=== PATIENT | female | born 1980 | race Caucasian/White ===

== ENCOUNTER 2016-07-18 16:20 | Inpatient (IN) | payer OTHER ==
[2016-07-18 16:29] VITALS: BMI 29.0
--- NOTE | 2016-07-18 16:44 | PDOC ---
History of Present Illness - General Chief Complaint: Palpitations Stated Complaint: NOT FEELING WELL Time Seen by Provider: 07/18/16 16:36 - History of Present Illness Initial Comments: 07/18/16 17:08 36 year old female presented to the ED with chief complaints of "feeling funny sensation over her chest" x 1 day. A/c to the patient, she was driving at around 12:30pm today, suddenly felt very hot, started to have funny sensation over her chest. At the same time, she felt dizzy, had near syncope, sweating, saw colored halos. She pulled the car, took some ice tea and gum, felt a little better. Patient went home, had something to eat since she only had one cup of coffee this morning but the funny sensation still persisted, hence came to the ED for further evaluation. Denies loc, vertigo, numbness, tingling sensation, chest pain, sob, cough, abdominal pain, nausea or vomiting. Bowel/Bladder habit normal. Sleep/Appetite Normal. LMP:Jul 03, 2016 Tubal ligation done last year Past Medical Hx: Thyroid disease (Radiation done 4yrs ago, not on meds) Allergies: NKDA Medications: None Past Surgical Hx: None Hospitalization: Never been hospitalized Social: Current smoker, 5-10 cigs/day since 20 yrs Occasional alcohol intake No use of illicit drug use. PCP: Dr. Sabrina Bailey. Past History - Past Medical History Allergies/Adverse Reactions: Allergies Allergy/AdvReac Type Severity Reaction Status Date / Time No Known Allergies Allergy Verified 07/18/16 16:23 Home Medications: Ambulatory Orders NK [No Known Home Medication] 07/18/16 Asthma: No Cancer: No Cardiac Disorders: No Diabetes: No HTN: No Seizures: No Thyroid Disease: Yes (hyperactive) - Surgical History Abdominal Surgery: Yes (tubal ligation) - Reproductive History Para: 4 Cervical CA: No Dysfunctional Uterine Bleeding: No Ectopic : No Endometrial CA: No Polycystic Ovaries: No - Psycho/Social/Smoking Cessation Hx Anxiety: No Suicidal Ideation: No Smoking Status: Yes Smoking History: Current every day smoker Have you smoked in the past 12 months: Yes Number of Cigarettes Smoked Daily: 10 If you are a former smoker, when did you quit?: 12/13/11 Information on smoking cessation initiated: No Hx Alcohol Use: No Drug/Substance Use Hx: No Substance Use Type: None Hx Substance Use Treatment: No Review of Systems - Review of Systems Able to Perform ROS?: Yes Comments:: 07/18/16 17:22 CONSTITUTIONAL: Absent: fever, chills, diaphoresis, generalized weakness, malaise, loss of appetite HEENT: Absent: rhinorrhea, nasal congestion, throat pain, throat swelling, difficulty swallowing, mouth swelling, ear pain, eye pain, visual Changes CARDIOVASCULAR: Present: Palpitations Absent: chest pain, syncope, palpitations, irregular heart rate, lightheadedness , peripheral edema RESPIRATORY: Absent: cough, shortness of breath, dyspnea with exertion, orthopnea, wheezing, stridor, hemoptysis GASTROINTESTINAL: Absent: abdominal pain, abdominal distension, nausea, vomiting, diarrhea, constipation, melena, hematochezia GENITOURINARY: Absent: dysuria, frequency, urgency, hesitancy, hematuria, flank pain, genital pain MUSCULOSKELETAL: Absent: myalgia, arthralgia, joint swelling SKIN:~ Absent: rash, itching, pallor HEMATOLOGIC/IMMUNOLOGIC: Absent: easy bleeding, easy bruising, lymphadenopathy, frequent infections ENDOCRINE: Absent: unexplained weight gain, unexplained weight loss, heat intolerance, cold intolerance NEUROLOGIC: Absent: headache, focal weakness or paresthesias, dizziness, unsteady gait, seizure, mental status changes, bladder or bowel incontinence PSYCHIATRIC: Absent: anxiety, depression, suicidal or homicidal ideation, hallucinations. Is the patient limited Sami proficient: No *Physical Exam - Vital Signs Last Vital Signs Temp Pulse Resp BP Pulse Ox 97.8 F 66 18 113/83 100 07/18/16 19:00 07/18/16 19:00 07/18/16 19:00 07/18/16 19:00 07/18/16 19:00 - Physical Exam Comments: 07/18/16 17:24 PE: GENERAL: Awake, alert, and fully oriented, in no acute distress HEAD: No signs of trauma EYES: PERRLA, EOMI, sclera anicteric, conjunctiva clear ENT: Auricles normal inspection, hearing grossly normal, nares patent, oropharynx clear without exudates. Moist mucosa NECK: Normal ROM, supple, no lymphadenopathy, JVD, or masses LUNGS: Breath sounds equal, clear to auscultation bilaterally. No wheezes, and no crackles.. HEART: Tachycardic, Regular rate and rhythm, normal S1 and S2, no murmurs. ABDOMEN: Soft, nontender, normoactive bowel sounds. No guarding, no rebound. No masses EXTREMITIES: Normal range of motion, no edema. No clubbing or cyanosis. No cords, erythema, or tenderness NEUROLOGICAL: Cranial nerves II through XII grossly intact. Normal speech, Gait not observed SKIN: Tattoos, Warm, Dry, normal turgor, no rashes or lesions noted. ED Treatment Course - LABORATORY CBC & Chemistry Diagram: 07/18/16 17:15 07/18/16 17:15 - ADDITIONAL ORDERS Additional order review: Laboratory Results 07/18/16 07/18/16 07/18/16 18:15 17:30 17:15 INR Sodium Potassium Chloride Carbon Dioxide Anion Gap BUN Creatinine Creat Clearance w eGFR Random Glucose Calcium Magnesium Total Bilirubin AST ALT Alkaline Phosphatase Creatine Kinase Troponin I Total Protein Albumin TSH 95.20 H Serum , Qual Negative Urine Color Urine Appearance Urine pH Ur Specific [place] Urine Protein Urine Glucose (UA) Urine Ketones Urine Blood Urine Nitrite Urine Bilirubin Urine Urobilinogen Ur Leukocyte Esterase Urine HCG, Qual Negative 07/18/16 07/18/16 07/18/16 17:15 17:15 17:15 INR 1.04 Sodium 138 Potassium 4.0 Chloride 100 Carbon Dioxide 29 D Anion Gap 9 BUN 16 D Creatinine 1.0 D Creat Clearance w eGFR > 60 Random Glucose 80 Calcium 8.8 Magnesium 2.2 Total Bilirubin 0.3 D AST 17 ALT 34 D Alkaline Phosphatase 51 D Creatine Kinase 245 H D Troponin I < 0.02 Total Protein 6.7 Albumin 3.8 D TSH Serum , Qual Urine Color Yellow Urine Appearance Slcloudy Urine pH 6.0 Ur Specific [place] 1.026 Urine Protein Negative Urine Glucose (UA) Negative Urine Ketones Trace H Urine Blood Negative Urine Nitrite Negative Urine Bilirubin Negative Urine Urobilinogen 4.0 e.u/dl H Ur Leukocyte Esterase Negative Urine HCG, Qual 07/18/16 17:15 RBC 3.60 MCV 86.1 MCHC 32.7 RDW 15.7 H D MPV 8.6 D Neutrophils % 62.2 Lymphocytes % 31.6 D Monocytes % 4.2 Eosinophils % 1.2 D Basophils % 0.8 - RADIOLOGY Radiology Studies Ordered: Category Date Time Status CHEST PA & LAT [RAD] Stat Radiology 07/18/16 18:18 Completed Medical Decision Making - Medical Decision Making 07/18/16 17:27 36 year old female with significant past medical h/o of thyroid disease ( underwent radiation 4 yrs ago) presented to the ED with chief complaints of "feeling funny sensation over her chest" x 1 day. # Palpitations R/o Pulmonary embolism-ordered D-dimer R/o ACS-ordered cardiac troponins R/o metabolic causes EKG showed abnormal T wave changes in the anterior and lateral leads. IV NS @ 100mls/hr. 07/18/16 19:09 Patient still has palpitation. Hemodynamically stable. Patient sitting comfortably in bed. Two sets of troponins ordered, reports pending. If both sets of troponins are negative, likely to be discharged. Illness, Investigation and Plan of care explained to the patient. She verbalized understanding. Case discussed with Dr. Diaz. *DC/Admit/Observation/Transfer Diagnosis at time of Disposition: Palpitations
[2016-07-18] MEDS ORDERED: SODIUM CHLORIDE 1,000 ML IV SCH (17:15)
[2016-07-18 17:43] LABS: BASOPHIL 0.8 % (0-2.0); EOSINOPHIL 1.2 % (0-4.5); MCH 28.2 pg (25.7-33.7); MCHC 32.7 g/dl (32.0-36.0); MEAN CELL VOLUME 86.1 fl (80-96); MEAN PLT VOLUME 8.6 fl (7.5-11.1); NEUTROPHILS 62.2 % (42.8-82.8); PLATELET COUNT 223 K/MM3 (134-434); RDW 15.7 % (11.6-15.6); WHITE BLOOD COUNT 6.7 K/mm3 (4.0-10.0)
--- NOTE | 2016-07-18 17:45 | PDOC ---
Attending Attestation - Resident Resident Name: Janelle Hernandez - ED Attending Attestation I have performed the following: I have examined & evaluated the patient, The case was reviewed & discussed with the resident, I agree w/resident's findings & plan, Exceptions are as noted - HPI HPI: 07/18/16 17:40 36-year-old female with past medical history of thyroid disorder, not currently on medications presents with near syncope. Patient woke up in her usual state health feeling well. While she was driving in the car at approximately 12:30 PM , the patient felt warm and hot and flushed. She felt lightheaded and dizzy. She pulled over her car, open upper window, and drank some iced tea and felt better. She had returned home and noted of vague chest "funny" sensation. She denies chest pain or pressures. Denies palpitations. She is unable to further characterize the symptoms. No associated short of breath or diaphoresis. Came into the ER because she felt continually lightheaded. - Physicial Exam PE: 07/18/16 17:43 GENERAL: Awake, alert, and fully oriented, in no acute distress. HEAD: No signs of trauma EYES: PERRLA, EOMI, sclera anicteric, conjunctiva clear ENT: Auricles normal inspection, hearing grossly normal, nares patent, oropharynx clear without exudates. NECK: Normal ROM, supple, no lymphadenopathy, JVD, or masses LUNGS: Breath sounds equal, clear to auscultation bilaterally. No wheezes, and no crackles HEART: Regular rate and rhythm, normal S1 and S2, no murmurs, rubs or gallops ABDOMEN: Soft, nontender, normoactive bowel sounds. No guarding, no rebound. No masses EXTREMITIES: Normal range of motion, no edema. No clubbing or cyanosis. No cords, erythema, or tenderness NEUROLOGICAL: Cranial nerves II through XII grossly intact. Normal speech, normal gait SKIN: Warm, Dry, normal turgor, no rashes or lesions noted. - Medical Decision Making 07/18/16 17:45 ECG: NSR 73, T wave flat III, TWI II, aVF, TW flat I, avL, V5, TWI V6, no std/ tameka, QTC 447 msec, no brugada, no HOCM, no WPW. 07/18/16 17:46 The history sounds suspicious for vasovagal near-syncope. The patient reports that she did not eat anything during the daytime in the morning and was quite busy. I will give her IV fluids. However, the patient's EKG demonstrates new T- wave findings compared to EKG in 2013. I have low suspicion for acute coronary syndrome. We'll obtain two troponins and place patient on cardiac telemetry. We' ll also obtain a d-dimer. If workup is negative patient reports feeling after IV fluids, we'll discharge patient with primary care physician follow-up.
[2016-07-18 17:54] LABS: INR 1.04 (0.82-1.09); PROTHROMBIN TIME (PATIENT) 11.5 SEC (9.98-11.88)
[2016-07-18 18:05] LABS: ALBUMIN 3.8 g/dl (3.4-5.0); ANION GAP 9 (8-16); BILIRUBIN,TOTAL 0.3 mg/dL (0.2-1.0); CALCIUM 8.8 mg/dL (8.5-10.1); CO2 29 mmol/L (21-32); GLUCOSE,RANDOM 80 mg/dL (74-106); MAGNESIUM 2.2 mg/dL (1.8-2.4); SGOT/AST 17 U/L (15-37); SGPT/ALT 34 U/L (12-78); TOT PROT 6.7 g/dl (6.4-8.2)
[2016-07-18 18:08] LABS: ALK PHOS 51 U/L (45-117); TROPONIN I < 0.02 ng/ml (0.00-0.05)
[2016-07-18 18:25] LABS: URINE APPEARANCE SLCLOUDY; URINE BILIRUBIN NEGATIVE (NEGATIVE); URINE BLOOD NEGATIVE (NEGATIVE); URINE COLOR YELLOW; URINE GLUCOSE (UA) NEGATIVE (NEGATIVE); URINE KETONE TRACE (NEGATIVE); URINE LEUK ESTERASE NEGATIVE (NEGATIVE); URINE NITRITE NEGATIVE (NEGATIVE); URINE PROTEIN NEGATIVE (NEGATIVE); URINE UROBILINOGEN 4.0 E.U/dl E.U./dl (0.2-1.0)
[2016-07-18 21:23] LABS: TROPONIN I < 0.02 ng/ml (0.00-0.05)
--- NOTE | 2016-07-18 21:41 | PDOC ---
*Heart Score (ED) - History History: Slightly suspicious - Electrocardiogram EKG: Non specific repolarization disturbance - Age Age: </= 45 - Risk Factors Based on the list above the patient has:: No risk factors known - Troponin Troponin: </= normal limit - Score Heart Score - Total: 1
--- NOTE | 2016-07-18 21:46 | PDOC ---
*Physical Exam - Vital Signs Last Vital Signs Temp Pulse Resp BP Pulse Ox 97.8 F 66 18 113/83 100 07/18/16 19:00 07/18/16 19:00 07/18/16 19:00 07/18/16 19:00 07/18/16 19:00 ED Treatment Course - LABORATORY CBC & Chemistry Diagram: 07/18/16 17:15 07/18/16 17:15 - ADDITIONAL ORDERS Additional order review: Laboratory Results 07/18/16 07/18/16 07/18/16 18:15 17:30 17:30 INR D-Dimer < 200 Sodium Potassium Chloride Carbon Dioxide Anion Gap BUN Creatinine Creat Clearance w eGFR Random Glucose Calcium Magnesium Total Bilirubin AST ALT Alkaline Phosphatase Creatine Kinase CK-MB (CK-2) Troponin I Total Protein Albumin TSH Serum , Qual Negative Urine Color Urine Appearance Urine pH Ur Specific [place] Urine Protein Urine Glucose (UA) Urine Ketones Urine Blood Urine Nitrite Urine Bilirubin Urine Urobilinogen Ur Leukocyte Esterase Urine HCG, Qual Negative 07/18/16 07/18/16 07/18/16 17:15 17:15 17:15 INR D-Dimer Sodium 138 Potassium 4.0 Chloride 100 Carbon Dioxide 29 D Anion Gap 9 BUN 16 D Creatinine 1.0 D Creat Clearance w eGFR > 60 Random Glucose 80 Calcium 8.8 Magnesium 2.2 Total Bilirubin 0.3 D AST 17 ALT 34 D Alkaline Phosphatase 51 D Creatine Kinase 245 H D CK-MB (CK-2) 1.48 Troponin I < 0.02 Total Protein 6.7 Albumin 3.8 D TSH 95.20 H Serum , Qual Urine Color Yellow Urine Appearance Slcloudy Urine pH 6.0 Ur Specific [place] 1.026 Urine Protein Negative Urine Glucose (UA) Negative Urine Ketones Trace H Urine Blood Negative Urine Nitrite Negative Urine Bilirubin Negative Urine Urobilinogen 4.0 e.u/dl H Ur Leukocyte Esterase Negative Urine HCG, Qual 07/18/16 17:15 INR 1.04 D-Dimer Sodium Potassium Chloride Carbon Dioxide Anion Gap BUN Creatinine Creat Clearance w eGFR Random Glucose Calcium Magnesium Total Bilirubin AST ALT Alkaline Phosphatase Creatine Kinase CK-MB (CK-2) Troponin I Total Protein Albumin TSH Serum , Qual Urine Color Urine Appearance Urine pH Ur Specific [place] Urine Protein Urine Glucose (UA) Urine Ketones Urine Blood Urine Nitrite Urine Bilirubin Urine Urobilinogen Ur Leukocyte Esterase Urine HCG, Qual 07/18/16 17:15 RBC 3.60 MCV 86.1 MCHC 32.7 RDW 15.7 H D MPV 8.6 D Neutrophils % 62.2 Lymphocytes % 31.6 D Monocytes % 4.2 Eosinophils % 1.2 D Basophils % 0.8 Medical Decision Making - Medical Decision Making 07/18/16 21:43 CBC, BMP 07/18/16 17:15 07/18/16 17:15 CMP Sodium 138 mmol/L (136-145) 07/18/16 17:15 Potassium 4.0 mmol/L (3.5-5.1) 07/18/16 17:15 Chloride 100 mmol/L (98-107) 07/18/16 17:15 Carbon Dioxide 29 mmol/L (21-32) D 07/18/16 17:15 Anion Gap 9 (8-16) 07/18/16 17:15 BUN 16 mg/dL (7-18) D 07/18/16 17:15 Creatinine 1.0 mg/dL (0.55-1.02) D 07/18/16 17:15 Creat Clearance w eGFR > 60 (>60) 07/18/16 17:15 Random Glucose 80 mg/dL (74-106) 07/18/16 17:15 Calcium 8.8 mg/dL (8.5-10.1) 07/18/16 17:15 Magnesium 2.2 mg/dL (1.8-2.4) 07/18/16 17:15 Total Bilirubin 0.3 mg/dL (0.2-1.0) D 07/18/16 17:15 AST 17 U/L (15-37) 07/18/16 17:15 ALT 34 U/L (12-78) D 07/18/16 17:15 Alkaline Phosphatase 51 U/L (45-117) D 07/18/16 17:15 Creatine Kinase 245 IU/L (26-192) H D 07/18/16 17:15 CK-MB (CK-2) 1.48 ng/ml (0.5-3.6) 07/18/16 17:15 Troponin I < 0.02 ng/ml (0.00-0.05) 07/18/16 17:15 Total Protein 6.7 g/dl (6.4-8.2) 07/18/16 17:15 Albumin 3.8 g/dl (3.4-5.0) D 07/18/16 17:15 TSH 95.20 uIU/ml (0.358-3.74) H 07/18/16 17:15 Serum , Qual Negative 07/18/16 18:15 TSH is 95.20. Trop is negative. 2nd trop is pending. Heart Score is 1. I have low suspicion that this is ACS, despite the fact that there are new ECG changes from 4 years ago. Patient's vague sensation is likely secondary to her thyroid. Will admit her to med/surg admission for further evaluation. *DC/Admit/Observation/Transfer Diagnosis at time of Disposition: Abnormal thyroid stimulating hormone (TSH) level - Discharge Dispostion Condition at time of disposition: Stable Admit: Yes - Referrals Referrals: Leo Saunders MD [Primary Care Provider] - - Patient Instructions - Post Discharge Activity
--- NOTE | 2016-07-18 23:14 | HP ---
CHIEF COMPLAINT: hypothyroid PCP: Dr. Sabrina Bailey. HISTORY OF PRESENT ILLNESS: 36-year-old female with past medical history of thyroid disorder with radiation therapy done 4 years ago, not taking her meds from 4 years. Presents to ED with a complain of funny sensation in chest and near syncope. Patient states that she was driving in the car at approximately 12:30 PM, the patient felt warm and hot and flushed. She felt lightheaded and dizzy. She pulled over her car, open upper window, and drank some iced tea and felt better. She had returned home and noted of vague chest "funny" sensation. She denies chest pain or pressures. Denies palpitations. She also report loss of hair, dry skin, feeling cold, constipation, tired. ER course was notable for: (1)cbc, cmp , TSH (2) IV flui , trop i Recent Travel: NO PAST MEDICAL HISTORY: grave ds PAST SURGICAL HISTORY: Radiation therapy for thyroid Social History: Alcohol: no Drugs: no Family History: Allergies No Known Allergies Allergy (Verified 07/18/16 16:23) HOME MEDICATIONS: Home Medications Medication Instructions Recorded NK [No Known Home Medication] 07/18/16 REVIEW OF SYSTEMS CONSTITUTIONAL: Absent: fever, chills, diaphoresis, generalized weakness, malaise, loss of appetite, weight gain HEENT: Absent: rhinorrhea, nasal congestion, throat pain, throat swelling, difficulty swallowing, mouth swelling, ear pain, eye pain, visual changes CARDIOVASCULAR: Absent: chest pain, syncope, palpitations, irregular heart rate, lightheadedness , peripheral edema RESPIRATORY: Absent: cough, shortness of breath, dyspnea with exertion, orthopnea, wheezing, stridor, hemoptysis GASTROINTESTINAL: Absent: abdominal pain, abdominal distension, nausea, vomiting, diarrhea, constipation, melena, hematochezia GENITOURINARY: Absent: dysuria, frequency, urgency, hesitancy, hematuria, flank pain, genital pain MUSCULOSKELETAL: Absent: myalgia, arthralgia, joint swelling, back pain, neck pain SKIN: Absent: rash, itching, pallor HEMATOLOGIC/IMMUNOLOGIC: Absent: easy bleeding, easy bruising, lymphadenopathy, frequent infections ENDOCRINE: Absent: unexplained weight gain, unexplained weight loss, heat intolerance, NEUROLOGIC: Absent: headache, focal weakness or paresthesias, dizziness, unsteady gait, seizure, mental status changes, bladder or bowel incontinence PSYCHIATRIC: Absent: anxiety, depression, suicidal or homicidal ideation, hallucinations. PHYSICAL EXAMINATION Vital Signs - 24 hr 07/18/16 22:42 Temperature 97.1 F L Pulse Rate [ 71 Apical] Respiratory 18 Rate Blood Pressure 116/84 [Left Arm] O2 Sat by Pulse 99 Oximetry (%) GENERAL: Awake, alert, and fully oriented, in no acute distress. HEAD: Normal with no signs of trauma. EYES: Pupils equal, round and reactive to light, extraocular movements intact, sclera anicteric, conjunctiva clear. No lid lag. EARS, NOSE, THROAT: Ears normal, nares patent, oropharynx clear without exudates. Moist mucous membranes. NECK: Normal range of motion, supple without lymphadenopathy, JVD, or masses. LUNGS: Breath sounds equal, clear to auscultation bilaterally. No wheezes, and no crackles. No accessory muscle use. HEART: s1s2 normal . ABDOMEN: Soft, nontender, not distended, normoactive bowel sounds, no guarding, no rebound, no masses. No hepatomegaly or splenomegaly. MUSCULOSKELETAL: Normal range of motion at all joints. No bony deformities or tenderness. No CVA tenderness. UPPER EXTREMITIES: 2+ pulses, warm, well-perfused. No cyanosis. No clubbing. Cap refill <2 seconds. No peripheral edema. LOWER EXTREMITIES: 2+ pulses, warm, well-perfused. No calf tenderness. No peripheral edema. NEUROLOGICAL: Cranial nerves II-XII intact. Normal speech. Normal gait. PSYCHIATRIC: Cooperative. Good eye contact. Appropriate mood and affect. SKIN: Warm, dry, normal turgor, no rashes or lesions noted. ASSESSMENT/PLAN: 36 year old female with significant past medical h/o of thyroid disease (underwent radiation 4 yrs ago) presented to the ED with chief complaints of "feeling funny sensation in chest and disgnosed to have hypothyroid. Hypothyroid TSH 95 Secondary to radiation therapy, non compliant with meds started on levothyroxine endocrine consult levothyroxine 125mcg no suspicion for myxedema Cardiac get echo to r/o pericardial effusion , patient has muffled heart sound, low voltage graph trop i negative time 2 HEART score 1 Fluid : orally allowed electrolyte: normal nutrition ; regular diet DVT pro ; pt ambulatory GI pro ; not required Dispo: admit med surg Visit type - Emergency Visit Emergency Visit: Yes ED Registration Date: 07/18/16 Care time: The patient presented to the Emergency Department on the above date and was hospitalized for further evaluation of their emergent condition. - New Patient This patient is new to me today: Yes Date on this admission: 07/19/16 - Critical Care Critical Care patient: No
--- NOTE | 2016-07-18 23:18 | PN ---
<KarinThai - Last Filed: 07/18/16 23:18> Teaching Attending Note Name of Resident: Andrew Leach ATTENDING PHYSICIAN STATEMENT I saw and evaluated the patient. I reviewed the resident's note and discussed the case with the resident. I agree with the resident's findings and plan as documented. SUBJECTIVE: OBJECTIVE: ASSESSMENT AND PLAN: <Nicky Wallace - Last Filed: 07/19/16 03:26> Teaching Attending Note ATTENDING PHYSICIAN STATEMENT I saw and evaluated the patient. Imaging data and chart reviewed. I reviewed the resident's note and discussed the case with the resident. I agree with the resident's findings and plan as documented. SUBJECTIVE: Patient is a 36-year-old female with past medical history of hypothyroidism with radiation therapy done 4 years ago, non compliant with her medication for 3 years.Patient c/o of funny sensation in chest. Patient states that she was driving and started feeling warm at around noon yesterday. She felt lightheaded and dizzy. She had returned home and noted of vague chest "funny" sensation. She denies chest pain or pressures, palpitations, or SOB. She also report loss of hair, dry skin, feeling cold, constipation, tired. OBJECTIVE: VS: Last Vital Signs Temp Pulse Resp BP Pulse Ox 98.1 F 63 18 116/75 100 07/18/16 23:20 07/18/16 23:20 07/18/16 23:20 07/18/16 23:20 07/19/16 00:22 Physical Exam: GENERAL: Awake, alert, and fully oriented, in no acute distress. HEENT: Atraumatic. Moist mucosa. Normocephalic. No sinus tenderness. No LAD. NECK: No JVD. No thyroid masses. Supple. LUNGS: Clear to auscultation bilaterally. No wheezing, rhonchi or rales. HEART: +heart sounds were distant. Regular rate and rhythm, normal S1 and S2, no murmurs, rubs or gallops, peripheral pulses normal and equal bilaterally. ABDOMEN: Soft, nontender, normoactive bowel sounds. No guarding, no rebound. No Masses. MUSCULOSKELETAL: No joint tenderness or erythema. No muscle tenderness. Normal muscle bulk and tone. EXTREMITIES: Normal inspection, No edema. No clubbing or cyanosis. Moves all extremities. NEUROLOGICAL: Normal speech. no focal sensorimotor deficits. SKIN: Warm, dry, normal turgor, no rashes or lesions noted. LABS: CBCD WBC 6.7 K/mm3 (4.0-10.0) 07/18/16 17:15 RBC 3.60 M/mm3 (3.60-5.2) 07/18/16 17:15 Hgb 10.2 GM/dL (10.7-15.3) L 07/18/16 17:15 Hct 31.0 % (32.4-45.2) L 07/18/16 17:15 MCV 86.1 fl (80-96) 07/18/16 17:15 MCHC 32.7 g/dl (32.0-36.0) 07/18/16 17:15 RDW 15.7 % (11.6-15.6) H D 07/18/16 17:15 Plt Count 223 K/MM3 (134-434) 07/18/16 17:15 MPV 8.6 fl (7.5-11.1) D 07/18/16 17:15 CMP Sodium 138 mmol/L (136-145) 07/18/16 17:15 Potassium 4.0 mmol/L (3.5-5.1) 07/18/16 17:15 Chloride 100 mmol/L (98-107) 07/18/16 17:15 Carbon Dioxide 29 mmol/L (21-32) D 07/18/16 17:15 Anion Gap 9 (8-16) 07/18/16 17:15 BUN 16 mg/dL (7-18) D 07/18/16 17:15 Creatinine 1.0 mg/dL (0.55-1.02) D 07/18/16 17:15 Creat Clearance w eGFR > 60 (>60) 07/18/16 17:15 Calcium 8.8 mg/dL (8.5-10.1) 07/18/16 17:15 Total Bilirubin 0.3 mg/dL (0.2-1.0) D 07/18/16 17:15 AST 17 U/L (15-37) 07/18/16 17:15 ALT 34 U/L (12-78) D 07/18/16 17:15 Alkaline Phosphatase 51 U/L (45-117) D 07/18/16 17:15 Total Protein 6.7 g/dl (6.4-8.2) 07/18/16 17:15 Albumin 3.8 g/dl (3.4-5.0) D 07/18/16 17:15 ASSESSMENT AND PLAN: 36 year old female with pmh of hypothyroidism who is being admitted for uncontrolled hypothyroidism with TSH of 95 and possible pericardial effusion. 1. Uncontrolled hypothyroidism secondary to being non compliant with medication clinically stable no suspicion of myxedema coma at this time - Levothyroxine 50 mcg daily due to possible for possible pericardial effusion - Endocrinology consult - TTE 2. Tobacco abuse - Counseled on smoking cessation 3. DVT ppx - Low risk - SCDs Regular diet Admit to Observation. Documentation prepared by SUAD Armstrong, acting as medical technologist clinical for Thai Frazier MD.
[2016-07-18] MEDS ORDERED: LEVOTHYROXINE NA 125 MCG TABLET (FP) PO ONE (23:29)
[2016-07-19 07:26] LABS: BASOPHIL 0.6 % (0-2.0); EOSINOPHIL 1.5 % (0-4.5); MCH 27.7 pg (25.7-33.7); MCHC 32.2 g/dl (32.0-36.0); MEAN CELL VOLUME 85.9 fl (80-96); MEAN PLT VOLUME 8.4 fl (7.5-11.1); NEUTROPHILS 56.7 % (42.8-82.8); PLATELET COUNT 190 K/MM3 (134-434); RDW 15.7 % (11.6-15.6); WHITE BLOOD COUNT 5.5 K/mm3 (4.0-10.0)
[2016-07-19 07:50] LABS: ALBUMIN 3.4 g/dl (3.4-5.0); ALK PHOS 52 U/L (45-117); ANION GAP 7 (8-16); BILIRUBIN,TOTAL 0.2 mg/dL (0.2-1.0); CALCIUM 8.2 mg/dL (8.5-10.1); CO2 29 mmol/L (21-32); CREATININE 0.9 mg/dL (0.55-1.02); GLUCOSE,RANDOM 64 mg/dL (74-106); MAGNESIUM 2.2 mg/dL (1.8-2.4); PHOSPHOROUS 4.2 mg/dL (2.5-4.9); SGOT/AST 13 U/L (15-37); SGPT/ALT 27 U/L (12-78); TOT PROT 6.1 g/dl (6.4-8.2)
--- NOTE | 2016-07-19 11:30 | CONSULT ---
Consult Consult Specialty:: Endocrinology Referred by:: Dr Leach Reason for Consultation:: Hypothyroidism - History of Present Illness Chief Complaint: Dizziness History of Present Illness: This is a 36-year-old female with history of hyperthyroidism diagnosed in 2012 s/p Wade ablation with subsequent hypothroidism, not currently on medications presents with c/o feeling hot and flushed with flashes of light while driving yesterday . She felt lightheaded and dizzy. She pulled over her car, open upper window, and drank some iced tea and felt better. She had returned home and noted of vague chest "funny" sensation. She denies chest pain or pressures. Denies palpitations. Pt was on LT4 initially after WADE treatment which she stopped taking once she moved to [place] around 3 years ago. C/O feeling tired, cold and sleepy since March. Weight gain of around 50 lbs in the last 3 years. Menstrual periods regular. Pt feels better now. - History Source History Provided By: Patient, Medical Record Limitations to Obtaining History: No Limitations - Past Medical History ...LMP: 07/03/16 Endocrine: Yes: Hyperthyroidism, Hypothyroidism - Alcohol/Substance Use Hx Alcohol Use: No - Smoking History Smoking history: Current every day smoker Have you smoked in the past 12 months: Yes Aproximately how many cigarettes per day: 10 If you are a former smoker, when did you quit?: 12/13/11 Home Medications - Allergies Allergies/Adverse Reactions: Allergies Allergy/AdvReac Type Severity Reaction Status Date / Time No Known Allergies Allergy Verified 07/18/16 16:23 - Home Medications Home Medications: Ambulatory Orders NK [No Known Home Medication] 07/18/16 Family Disease History - Family Disease History Other Family History: Aunt and Niece have thyroid disorder. Doesn't know if hypo or hyperthyroid Review of Systems - Review of Systems Constitutional: reports: Weakness Eyes: reports: No Symptoms HENT: reports: No Symptoms Neck: reports: No Symptoms Cardiovascular: reports: No Symptoms Respiratory: reports: No Symptoms Gastrointestinal: reports: No Symptoms Genitourinary: reports: No Symptoms Breasts: reports: No Symptoms Reported Musculoskeletal: reports: No Symptoms Neurological: reports: No Symptoms Endocrine: reports: No Symptoms Hematology/Lymphatic: reports: No Symptoms Physical Exam Vital Signs: Vital Signs Temperature 98.1 F 07/19/16 06:00 Pulse Rate 58 L 07/19/16 06:00 Respiratory Rate 18 07/19/16 06:00 Blood Pressure 100/65 07/19/16 06:00 O2 Sat by Pulse Oximetry (%) 100 07/19/16 00:22 Constitutional: Yes: Well Nourished, No Distress Eyes: Yes: WNL, Conjunctiva Clear HENT: Yes: WNL, Atraumatic Neck: Yes: Supple, Trachea Midline Cardiovascular: Yes: Regular Rate and Rhythm Respiratory: Yes: Regular, CTA Bilaterally Gastrointestinal: Yes: Normal Bowel Sounds, Soft Renal/: Yes: WNL Musculoskeletal: Yes: WNL Extremities: Yes: WNL Edema: No Neurological: Yes: Alert, Oriented Labs: CBC, BMP 07/19/16 06:30 07/19/16 06:30 Imaging - Results Chest X-ray: Report Reviewed EKG: Report Reviewed Assessment/Plan AP; HYpothyroidism S/P WADE ablation of Thyroid Start LT4 100 mcg daily Discussed need to take thyroid medication for life. Complications of untreated hypothyroidism including discussed. Pt verbalizes understanding Also discussed need to control thyroid prior to conceiving in case she has any such plans in the future. Dizziness: resolved
[2016-07-19] MEDS: LEVOTHYROXINE NA 100 MCG TABLET (FP) PO SCH (13:37)
--- NOTE | 2016-07-19 13:40 | EKG ---
Test Reason : Blood Pressure : / mmHG Vent. Rate : 073 BPM Atrial Rate : 073 BPM P-R Int : 160 ms QRS Dur : 108 ms QT Int : 406 ms P-R-T Axes : 034 075 113 degrees QTc Int : 447 ms NORMAL SINUS RHYTHM NONSPECIFIC T WAVE ABNORMALITY ABNORMAL ECG WHEN COMPARED WITH ECG OF 16-OCT-2012 17:56, VENT. RATE HAS DECREASED BY 42 BPM Confirmed by HAO STONE MD ([id number]) on 07/19/2016 1:39:45 PM Referred By: Confirmed By:HAO STONE MD
--- NOTE | 2016-07-19 15:50 | PN ---
Physical Exam: SUBJECTIVE: Patient seen and examined Patient is comfortable with no acute distress, no shortness of breath, no nausea or vomiting. The only thing that she is c/o having dry skin. OBJECTIVE: Vital Signs Temperature 98.3 F 07/19/16 14:00 Pulse Rate 68 07/19/16 14:00 Respiratory Rate 18 07/19/16 14:00 Blood Pressure 131/68 07/19/16 14:00 O2 Sat by Pulse Oximetry (%) 100 07/19/16 09:00 GENERAL: The patient is awake, alert, and fully oriented, in no acute distress. HEAD: Normal with no signs of trauma. EYES: PERRL, extraocular movements intact, sclera anicteric, conjunctiva clear. No ptosis. ENT: Ears normal, nares patent, oropharynx clear without exudates, moist mucous membranes. NECK: Trachea midline, full range of motion, supple. LUNGS: Breath sounds equal, clear to auscultation bilaterally, no wheezes, no crackles, no accessory muscle use. HEART: Regular rate and rhythm, S1, S2 without murmur, rub or gallop. ABDOMEN: Soft, nontender, nondistended, normoactive bowel sounds, no guarding, no rebound, no hepatosplenomegaly, no masses. EXTREMITIES: 2+ pulses, warm, well-perfused, no edema. NEUROLOGICAL: Cranial nerves II through XII grossly intact. Normal speech, gait not observed. PSYCH: Normal mood, normal affect. SKIN: Warm, dry, normal turgor, no rashes or lesions noted Laboratory Results - last 24 hr 07/19/16 07/19/16 06:30 06:30 WBC 5.5 RBC 3.38 L Hgb 9.4 L Hct 29.0 L MCV 85.9 MCHC 32.2 RDW 15.7 H Plt Count 190 MPV 8.4 Neutrophils % 56.7 Lymphocytes % 36.2 Monocytes % 5.0 Eosinophils % 1.5 Basophils % 0.6 Sodium 140 Potassium 3.9 Chloride 104 Carbon Dioxide 29 Anion Gap 7 L BUN 14 Creatinine 0.9 Creat Clearance w eGFR > 60 Random Glucose 64 L Calcium 8.2 L Phosphorus 4.2 Magnesium 2.2 Total Bilirubin 0.2 D AST 13 L D ALT 27 D Alkaline Phosphatase 52 Total Protein 6.1 L Albumin 3.4 Active Medications Generic Name Dose Route Start Last Admin Trade Name Freq PRN Reason Stop Dose Admin Levothyroxine Sodium 100 mcg 07/19/16 12:30 07/19/16 13:37 Synthroid - PO 100 mcg DAILY@0700 [facility] Administration ASSESSMENT/PLAN: 36 year old female with significant past medical h/o of thyroid disease ( underwent radiation 4 yrs ago) presented to the ED with chief complaints of "feeling funny sensation in chest and disgnosed to have hypothyroid. # Acute Hypothyroidism s/p WADE ablation of Thyroid; started on synthroid 100mcg po daily , endoctine consult is appreciated. # Dizziness: resolved Dvt Px: ambulatory possible discharge in am. Visit type - Emergency Visit Emergency Visit: Yes ED Registration Date: 07/18/16 Care time: The patient presented to the Emergency Department on the above date and was hospitalized for further evaluation of their emergent condition. - New Patient This patient is new to me today: Yes Date on this admission: 07/19/16 - Critical Care Critical Care patient: No - Discharge Referral Referred to [facility] No
[2016-07-20] MEDS: LEVOTHYROXINE NA 100 MCG TABLET (FP) PO SCH (06:07)
[2016-07-20 09:20] VITALS: BP 112/65; PULSE 60; TEMP 98.2
--- NOTE | 2016-07-20 11:47 | PN ---
Progress Note (short form) - Note Progress Note: Feels good Denies any complaints Vital Signs Period Temp Pulse Resp BP Sys/Castro Pulse Ox Last 24 Hr 97.7 F-98.3 F 51-68 18-20 98-131/55-68 100 PE: AOx3 Neck: Supple, No JVD HEENT; PERRL, EOMI Lungs: CTA Abd: Benign CVS: S1S2 reg EXt: No edema Neuro: No focal deficit CMP Sodium 140 mmol/L (136-145) 07/19/16 06:30 Potassium 3.9 mmol/L (3.5-5.1) 07/19/16 06:30 Chloride 104 mmol/L (98-107) 07/19/16 06:30 Carbon Dioxide 29 mmol/L (21-32) 07/19/16 06:30 Anion Gap 7 (8-16) L 07/19/16 06:30 BUN 14 mg/dL (7-18) 07/19/16 06:30 Creatinine 0.9 mg/dL (0.55-1.02) 07/19/16 06:30 Creat Clearance w eGFR > 60 (>60) 07/19/16 06:30 Random Glucose 64 mg/dL (74-106) L 07/19/16 06:30 Calcium 8.2 mg/dL (8.5-10.1) L 07/19/16 06:30 Phosphorus 4.2 mg/dL (2.5-4.9) 07/19/16 06:30 Magnesium 2.2 mg/dL (1.8-2.4) 07/19/16 06:30 Total Bilirubin 0.2 mg/dL (0.2-1.0) D 07/19/16 06:30 AST 13 U/L (15-37) L D 07/19/16 06:30 ALT 27 U/L (12-78) D 07/19/16 06:30 Alkaline Phosphatase 52 U/L (45-117) 07/19/16 06:30 Creatine Kinase 235 IU/L (26-192) H 07/18/16 20:20 CK-MB (CK-2) 1.48 ng/ml (0.5-3.6) 07/18/16 17:15 Troponin I < 0.02 ng/ml (0.00-0.05) 07/18/16 20:20 Total Protein 6.1 g/dl (6.4-8.2) L 07/19/16 06:30 Albumin 3.4 g/dl (3.4-5.0) 07/19/16 06:30 TSH 95.20 uIU/ml (0.358-3.74) H 07/18/16 17:15 Serum , Qual Negative 07/18/16 18:15 Current Medications Generic Name Dose Route Start Last Admin Trade Name Freq PRN Reason Stop Dose Admin Levothyroxine Sodium 100 mcg 07/19/16 12:30 07/20/16 06:07 Synthroid - PO 100 mcg DAILY@0700 [facility] Administration AP: Hypothyroidism: continue LT4 100mcg QD Discussed need for compliance with medication again. Pt verbalizes understanding F/U in office in one week
--- NOTE | 2016-07-20 13:10 | DS ---
Physical Exam: SUBJECTIVE: Patient seen and examined Patient is comfortable with no acute distress. Had BM this morning. OBJECTIVE: Vital Signs Temperature 98.2 F 07/20/16 09:19 Pulse Rate 60 07/20/16 09:19 Respiratory Rate 18 07/20/16 09:19 Blood Pressure 112/65 07/20/16 09:19 O2 Sat by Pulse Oximetry (%) 100 07/19/16 21:00 GENERAL: The patient is awake, alert, and fully oriented, in no acute distress. HEAD: Normal with no signs of trauma. EYES: PERRL, extraocular movements intact, sclera anicteric, conjunctiva clear. ENT: Ears normal, nares patent, oropharynx clear without exudates, moist mucous membranes. NECK: Trachea midline, full range of motion, supple. LUNGS: Breath sounds equal, clear to auscultation bilaterally, no wheezes, no crackles, no accessory muscle use. HEART: Regular rate and rhythm, S1, S2 without murmur, rub or gallop. ABDOMEN: Soft, nontender, nondistended, normoactive bowel sounds, no guarding, no rebound, no hepatosplenomegaly, no masses. EXTREMITIES: 2+ pulses, warm, well-perfused, no edema. NEUROLOGICAL: Cranial nerves II through XII grossly intact. Normal speech, gait not observed. PSYCH: Normal mood, normal affect. SKIN: Warm, dry, normal turgor, no rashes or lesions noted. LABS CBCD WBC 5.5 K/mm3 (4.0-10.0) 07/19/16 06:30 RBC 3.38 M/mm3 (3.60-5.2) L 07/19/16 06:30 Hgb 9.4 GM/dL (10.7-15.3) L 07/19/16 06:30 Hct 29.0 % (32.4-45.2) L 07/19/16 06:30 MCV 85.9 fl (80-96) 07/19/16 06:30 MCHC 32.2 g/dl (32.0-36.0) 07/19/16 06:30 RDW 15.7 % (11.6-15.6) H 07/19/16 06:30 Plt Count 190 K/MM3 (134-434) 07/19/16 06:30 MPV 8.4 fl (7.5-11.1) 07/19/16 06:30 CMP Sodium 140 mmol/L (136-145) 07/19/16 06:30 Potassium 3.9 mmol/L (3.5-5.1) 07/19/16 06:30 Chloride 104 mmol/L (98-107) 07/19/16 06:30 Carbon Dioxide 29 mmol/L (21-32) 07/19/16 06:30 Anion Gap 7 (8-16) L 07/19/16 06:30 BUN 14 mg/dL (7-18) 07/19/16 06:30 Creatinine 0.9 mg/dL (0.55-1.02) 07/19/16 06:30 Creat Clearance w eGFR > 60 (>60) 07/19/16 06:30 Random Glucose 64 mg/dL (74-106) L 07/19/16 06:30 Calcium 8.2 mg/dL (8.5-10.1) L 07/19/16 06:30 Total Bilirubin 0.2 mg/dL (0.2-1.0) D 07/19/16 06:30 AST 13 U/L (15-37) L D 07/19/16 06:30 ALT 27 U/L (12-78) D 07/19/16 06:30 Alkaline Phosphatase 52 U/L (45-117) 07/19/16 06:30 Total Protein 6.1 g/dl (6.4-8.2) L 07/19/16 06:30 Albumin 3.4 g/dl (3.4-5.0) 07/19/16 06:30 CARDIAC ENZYMES Creatine Kinase 235 IU/L (26-192) H 07/18/16 20:20 Troponin I < 0.02 ng/ml (0.00-0.05) 07/18/16 20:20 Current Medications Generic Name Dose Route Start Last Admin Trade Name Miguelq PRN Reason Stop Dose Admin Levothyroxine Sodium 100 mcg 07/19/16 12:30 07/20/16 06:07 Synthroid - PO 100 mcg DAILY@0700 [facility] Administration Home Medications Medication Instructions Recorded NK [No Known Home Medication] 07/18/16 HOSPITAL COURSE: Date of Admission:07/18/16 Date of Discharge: 07/20/16 36 year old female with significant past medical h/o of thyroid disease ( underwent radiation 4 yrs ago) presented to the ED with chief complaints of "feeling funny sensation in chest and disgnosed to have hypothyroid. 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 period # Dizziness: resolved Dvt Px: ambulatory Laboratory Tests 07/18/16 17:15 TSH 95.20 H Minutes to complete discharge: 35 Discharge Summary Reason For Visit: ABNORMAL THYROID STIMULATING HORMONE(TSH) LEVEL Current Active Problems Abnormal TSH (Acute) - Instructions Referrals: Leo Saunders MD [Primary Care Provider] - - Home Medications Comprehensive Discharge Medication List: Ambulatory Orders NK [No Known Home Medication] 07/18/16 This patient is new to me today: No Emergency Visit: Yes ED Registration Date: 07/18/16 Care time: The patient presented to the Emergency Department on the above date and was hospitalized for further evaluation of their emergent condition. Critical Care patient: No - Discharge Referral Referred to [facility] No
== END 2016-07-20 14:12 | disposition home or self-care (01) | DRG 424 ==
LOC: JER 16:20 → JERBED 21:46 → J5S 23:21
PROVIDERS: ADMIT Internal Medicine; ATTEND Internal Medicine
DX: E03.9 Hypothyroidism, unspecified (principal); R00.2 Palpitations; F17.210 Nicotine dependence, cigarettes, uncomplicated; R94.6 Abnormal results of thyroid function studies; Z91.14 Patient's other noncompliance with medication regimen
CPT/HCPCS: 36415; 71020-TC; 80053; 81003; 82550; 82553; 83735; 84100; 84443; 84484; 84703; 85025; 85379; 85610; 93005; 93010; 99285-25